=== PATIENT | male | born 1965 | race Caucasian/White ===

== ENCOUNTER 2023-05-02 10:06 | Emergency (ER) | payer OTHER ==
[~2023-05-02] VITALS: Ht 185.4 cm; Wt 99.8 kg
[2023-05-02] MEDS ORDERED: Ketorolac Tromethamine 30mg Vial IV ONE (12:20)
== END 2023-05-02 12:38 | disposition home or self-care (01) ==
LOC: ER 10:06
DX: M54.12 Radiculopathy, cervical region (principal)
CPT/HCPCS: 93005; 93010; 96374; 99283-25; J1885